=== PATIENT | female | born 1995 | race Caucasian/White ===

== ENCOUNTER 2020-06-26 03:10 | Inpatient (IN) | payer OTHER, SELFPAY ==
[~2020-06-26] VITALS: Ht 152.4 cm; Wt 65.8 kg
[2020-06-26] MEDS ORDERED: OXYTOCIN/0.9 % SODIUM CHLORIDE 1,000 ML IV SCH (04:00)
[2020-06-26] MEDS ORDERED: LR 1,000 ML IV ONE (04:00)
[2020-06-26] MEDS ORDERED: LR 1,000 ML IV SCH (04:00)
[2020-06-26] MEDS ORDERED: TERBUTALINE SULFATE 1 MG/ML VIAL SUBCUT ONE (04:00)
[2020-06-26 04:12] LABS: BASOPHILS % (AUTO) 0.2 % (0.0-2.0); EOSINOPHILS # (AUTO) 0.1 K/uL (0.0-0.4); EOSINOPHILS % (AUTO) 0.8 % (0.0-4.0); HEMATOCRIT 37.7 % (36-48); HEMOGLOBIN 12.9 g/dL (12.0-16.0); LYMPHOCYTES # (AUTO) 1.4 K/uL (1.0-5.5); MEAN CORPUSCULAR HEMOGLOBIN 31 pg (27-31); MEAN CORPUSCULAR HGB CONC 34 % (32-36); MEAN CORPUSCULAR VOLUME 91 fL (79.0-98.0); MONOCYTES # (AUTO) 0.6 K/uL (0.0-1.0); MONOCYTES % (AUTO) 8.2 % (1.7-9.3); NEUTROPHILS # (AUTO) 4.8 K/uL (1.8-7.7); NEUTROPHILS % (AUTO) 69.8 % (40.0-70.0); PLATELET COUNT (AUTO) 217 K/uL (130-430); RED BLOOD CELL COUNT(AUTO) 4.13 MIL/uL (4.2-6.2); WHITE BLOOD COUNT (AUTO) 6.8 K/uL (4.8-10.8)
[2020-06-26] MEDS ORDERED: ROPIVACAINE HCL/PF 0.2% 200 ML ONE (04:32)
[2020-06-26] MEDS ORDERED: fentaNYL CITRATE/PF 100 MCG/2 ML AMP ONE (04:32)
[2020-06-26 04:47] VITALS: BP_SYST 117
[2020-06-26] MEDS ORDERED: FLU VACC QS2020-21 (6 mos & up) 0.5 ML/SYRINGE I.M. PRN (05:00)
[2020-06-26] MEDS ORDERED: OXYTOCIN 10 UNIT/ML VIAL IM ONE (05:00)
[2020-06-26] MEDS ORDERED: DOCUSATE SODIUM 100 MG CAPSULE PO PRN (12:30)
[2020-06-26] MEDS ORDERED: DERMOPLAST SPRAY TP PRN (12:30)
[2020-06-26] MEDS ORDERED: LANOLIN 7 GM OINT. TP PRN (12:30)
[2020-06-26] MEDS ORDERED: RHO(D) IMMUNE GLOBULIN/MALTOSE 1500 UNITS/1.3 ML (WINHRO) IM PRN (12:30)
[2020-06-26] MEDS ORDERED: HYDROcodone/ACETAMIN 5-325 MG TAB (NORCO/ VICODIN) PO PRN (12:30)
[2020-06-26] MEDS ORDERED: DIPH-TET-PERTUS Vaccine 0.5 ML VIAL (ADACEL) I.M. PRN (12:30)
[2020-06-26] MEDS ORDERED: ANUSOL 1 EA SUPP.RECT (PREPARATION H) RC PRN (12:30)
[2020-06-26] MEDS ORDERED: OXYCODONE/ACETAMINOPHEN 5-325 TABLET PO PRN ×2 (12:30)
[2020-06-26] MEDS ORDERED: WITCH HAZEL LEAF 1 MED.PAD MED.PAD TP PRN (12:30)
[2020-06-26] MEDS ORDERED: SENNOSIDES/DOCUSATE SODIUM 1 TAB TABLET(SENOKOT-S) PO PRN (12:30)
[2020-06-26] MEDS ORDERED: HYDROCORTISONE 0.5%, 28.35 GM TOPICAL CREAM TP PRN (12:30)
[2020-06-26] MEDS ORDERED: NALOXONE HCL 0.4 MG/ML AMP (NARCAN) IVP PRN (12:30)
[2020-06-26] MEDS ORDERED: METHYLERGONOVINE MALEATE 0.2 MG TABLET PO PRN (12:30)
[2020-06-26] MEDS ORDERED: OXYTOCIN/0.9 % SODIUM CHLORIDE 1,000 ML IV ONE (12:30)
[2020-06-26] MEDS: IBUPROFEN 600 MG TABLET PO SCH ×2 (12:50→23:25)
[2020-06-27] MEDS: IBUPROFEN 600 MG TABLET PO SCH ×2 (05:40→11:43)
[2020-06-27 07:32] LABS: HEMATOCRIT 34.1 % (36-48); HEMOGLOBIN 11.6 g/dL (12.0-16.0)
== END 2020-06-27 15:50 | disposition home or self-care (01) | DRG 560 ==
LOC: SPU 03:10
PROVIDERS: ADMIT Obstetrics & Gynecology; ATTEND Obstetrics & Gynecology
PROC: 10E0XZZ Delivery of Products of Conception, External Approach (ICD-10-PCS; principal; 2020-06-26)
PROC: 3E0R3BZ Introduction of Anesthetic Agent into Spinal Canal, Percutaneous Approach (ICD-10-PCS; 2020-06-26)
PROC: 00HU33Z Insertion of Infusion Device into Spinal Canal, Percutaneous Approach (ICD-10-PCS; 2020-06-26)
DX: O69.81X0 Labor and delivery complicated by cord around neck, without compression, not applicable or unspecified (principal); Z20.828 Contact with and (suspected) exposure to other viral communicable diseases; Z37.0 Single live birth; Z3A.39 39 weeks gestation of pregnancy
CPT/HCPCS: 36415; 81002-TC; 85018-TC; 85025; 86592; 86886; 86900; 86901; 94760; J2590; J3010; J7120

== ENCOUNTER 2023-03-07 20:12 | Observation (INO) | payer OTHER ==
[~2023-03-07] VITALS: Ht 152.4 cm; Wt 54.4 kg
== END 2023-03-07 22:00 | disposition home or self-care (01) ==
LOC: SPU 20:12
PROVIDERS: ADMIT Obstetrics & Gynecology; ATTEND Obstetrics & Gynecology
DX: O26.893 Other specified pregnancy related conditions, third trimester (principal); R10.2 Pelvic and perineal pain; O99.891 Other specified diseases and conditions complicating pregnancy; M54.9 Dorsalgia, unspecified; Z3A.31 31 weeks gestation of pregnancy
CPT/HCPCS: G0379; G0378

== ENCOUNTER 2023-05-01 18:21 | Inpatient (IN) | payer OTHER ==
[~2023-05-01] VITALS: Ht 152.4 cm; Wt 59.0 kg
[2023-05-01] MEDS ORDERED: TERBUTALINE SULFATE 1 MG/ML VIAL SUBCUT ONE (19:00)
[2023-05-01] MEDS ORDERED: NALBUPHINE HCL 10 MG/ML AMP IM PRN (19:00)
[2023-05-01] MEDS ORDERED: LR 1,000 ML IV ONE ×2 (19:00→22:15)
[2023-05-01] MEDS ORDERED: LR 1,000 ML IV SCH (19:00)
[2023-05-01 19:10] VITALS: BP_SYST 105; RESP 18; TEMP 98.5
[2023-05-01 19:37] LABS: BASOPHILS % (AUTO) 0.2 % (0.0-2.0); EOSINOPHILS # (AUTO) 0.2 K/uL (0.0-0.4); HEMATOCRIT 36.7 % (36-48); HEMOGLOBIN 12.2 g/dL (12.0-16.0); LYMPHOCYTES # (AUTO) 1.7 K/uL (1.0-5.5); LYMPHOCYTES % (AUTO) 21.1 % (20.5-51.5); MEAN CORPUSCULAR HEMOGLOBIN 31 pg (27-31); MEAN CORPUSCULAR HGB CONC 33 % (32-36); MEAN CORPUSCULAR VOLUME 92 fL (79.0-98.0); MONOCYTES # (AUTO) 0.6 K/uL (0.0-1.0); MONOCYTES % (AUTO) 6.8 % (1.7-9.3); NEUTROPHILS # (AUTO) 5.7 K/uL (1.8-7.7); NEUTROPHILS % (AUTO) 69.9 % (40.0-70.0); PLATELET COUNT (AUTO) 185 K/uL (130-430); RED BLOOD CELL COUNT(AUTO) 3.97 MIL/uL (4.2-6.2); RED CELL DISTRIBUTION WIDTH 13.8 % (9.0-15.0); WHITE BLOOD COUNT (AUTO) 8.1 K/uL (4.8-10.8)
[2023-05-01] MEDS ORDERED: AMPICILLIN SODIUM 2 GM in NS 100 ML IV ONE (20:00)
[2023-05-01] MEDS ORDERED: AMPICILLIN SODIUM 2 GM VIAL ONE (20:19)
[2023-05-01] MEDS ORDERED: FENT2mCg/mL-ROPIVA0.2%/NS EPID 200 ML EP SCH (21:00)
[2023-05-01] MEDS ORDERED: FENT2mCg/mL-ROPIVA0.2%/NS EPID 200 ML EP ONE (21:00)
[2023-05-01] MEDS ORDERED: ROPIVACAINE HCL/PF 0.2% 200 ML ONE (21:04)
[2023-05-01] MEDS ORDERED: fentaNYL CITRATE/PF 100 MCG/2 ML AMP ONE (21:04)
[2023-05-01] MEDS ORDERED: ROPIVACAINE HCL/PF 0.2% 200 ML EP ONE (21:30)
[2023-05-01] MEDS ORDERED: ePHEDrine sulfate 50 MG/ML VIAL IVP PRN (22:15)
[2023-05-01] MEDS: OXYTOCIN/0.9 % SODIUM CHLORIDE 1,000 ML IV SCH (23:09)
[2023-05-01] MEDS ORDERED: AMPICILLIN SODIUM 1 GM VIAL ONE (23:51)
[2023-05-02] MEDS ORDERED: AMPICILLIN SODIUM 1 GM in NS 50 ML IV SCH ×2
[2023-05-02] MEDS ORDERED: LIDOCAINE PF 1% 30ML(POUR BTL) INJ ONE (01:14)
[2023-05-02] MEDS ORDERED: LIGHT MINERAL OIL 10 ML VIAL MC ONE (01:14)
[2023-05-02] MEDS ORDERED: NALOXONE HCL 0.4 MG/ML AMP (NARCAN) ONE (01:15)
[2023-05-02] MEDS ORDERED: HYDROcodone/ACETAMIN 5-325 MG TAB (NORCO/ VICODIN) PO PRN (01:45)
[2023-05-02] MEDS ORDERED: OXYCODONE/ACETAMINOPHEN 5-325 TABLET PO PRN (01:45)
[2023-05-02] MEDS ORDERED: METHYLERGONOVINE MALEATE 0.2 MG/ML AMP ONE (01:58)
[2023-05-02] MEDS ORDERED: METHYLERGONOVINE MALEATE 0.2 MG/ML AMP IM ONE (01:58)
[2023-05-02] MEDS: OXYTOCIN/0.9 % SODIUM CHLORIDE 1,000 ML IV SCH (02:54)
[2023-05-02] MEDS: IBUPROFEN 600 MG TABLET PO SCH ×4 (05:55→23:51)
[2023-05-02] MEDS ORDERED: DOCUSATE SODIUM 100 MG CAPSULE PO ONE (09:39)
[2023-05-02] MEDS ORDERED: SENNOSIDES 8.6 MG TABLET PO SCH (21:00)
[2023-05-03] MEDS: IBUPROFEN 600 MG TABLET PO SCH ×2 (06:43→12:21)
[2023-05-03 07:24] LABS: HEMATOCRIT 33.5 % (36-48); HEMOGLOBIN 11.2 g/dL (12.0-16.0)
[2023-05-03] MEDS ORDERED: DOCUSATE SODIUM 100 MG CAPSULE PO SCH (09:30)
[2023-05-03] MEDS: OXYCODONE/ACETAMINOPHEN 5-325 TABLET PO PRN ×2 (09:59→15:50)
[2023-05-03] MEDS ORDERED: DIPHTH,PERTUSS(ACELL),TET VAC 0.5 ML VIAL (Tdap) I.M. ONE (11:45)
== END 2023-05-03 16:00 | disposition home or self-care (01) | DRG 560 ==
LOC: SPU 18:21
PROVIDERS: ADMIT Obstetrics & Gynecology; ATTEND Obstetrics & Gynecology
PROC: 10E0XZZ Delivery of Products of Conception, External Approach (ICD-10-PCS; principal; 2023-05-02)
PROC: 3E0R3BZ Introduction of Anesthetic Agent into Spinal Canal, Percutaneous Approach (ICD-10-PCS; 2023-05-02)
PROC: 00HU33Z Insertion of Infusion Device into Spinal Canal, Percutaneous Approach (ICD-10-PCS; 2023-05-02)
DX: O80 Encounter for full-term uncomplicated delivery (principal); Z37.0 Single live birth; Z20.822 Contact with and (suspected) exposure to COVID-19; Z3A.39 39 weeks gestation of pregnancy
CPT/HCPCS: 36415; 81002; 85018; 85025; 86592; 86886; 86900; 86901; 87536; 90715; 94760; J0290; J2001; J2210; J2310; J2590; J3010; J7120